=== PATIENT | female | born 1950 | race Caucasian/White ===

== ENCOUNTER → 2021-09-15 | Outpatient (CLI) | payer MEDICARE, OTHER ==
--- NOTE | 2021-09-15 15:22 | RAD ---
MR#: [id number] Date of Study: 09/15/2021 Ordering Physician: NED STRONG, Referring Physician: NED STRONG, Tech: Hossein Oseguera MBA, RDMS, RVT, RDCS, RTR APPROVED REPORT Patient Location : OUT-PATIENT Indications VENOUS INSUFFICIENCY Lesser Saphenous Veins (LSV) Significant venous reflux is noted in the Bilateral LSV. Findings Grayscale images of superficial veins and saphenofemoral junctions bilateral lower extremities were g rossly unremarkable. Spectral waveform and color duplex analysis showed previously ablated bilateral greater saphenous veins. The lesser saphenous veins both lower extremities showed significant venou s reflux. The right lesser saphenous vein measured 3.5 mm at the saphenous popliteal junction and showed a sign ificant reflux of 2.5 seconds. This vein showed reflux all the way up to the ankle. The left lesser saphenous vein measured 2.8 mm at the saphenous popliteal junction and showed significant reflux of 2 seconds. This vein also showed significant reflux all the way up to the ankle. Critical Notification Critical Value: No <Conclusion> Bilateral lower extremity venous reflux study showed previously ablated bilateral greater saphenous v eins and significant venous reflux involving bilateral lesser saphenous veins. Signed by : Edson Moreno, Electronically Approved : 09/15/2021 15:21:39
--- NOTE | 2021-09-15 17:26 | CARD ---
MR#: [id number] Date of Study: 09/15/2021 Ordering Physician: NDE STRONG, Referring Physician: NED STRONG, Tech: Daniel Sweeney [facility] APPROVED REPORT EXAM: Two-dimensional and M-mode echocardiogram with Doppler and color Doppler. Other Information Quality : AverageHR: 71bpm Rhythm : NSR INDICATION Pre-Op RISK FACTORS Hypertension Obesity 2D DIMENSIONS Left Atrium(2D)3.9 (1.6-4.0cm)IVSd0.8 (0.7-1.1cm) Aortic Root(2D)3.1 (2.0-3.7cm)LVDd4.5 (3.9-5.9cm) LVOT Diameter1.9 (1.8-2.4cm)PWd0.8 (0.7-1.1cm) LA Btferq59 (18-58mL)LVDs2.5 (2.5-4.0cm) FS (%) 43.9 %SV68.8 ml Aortic Valve AoV Peak Colton.148.2cm/sAoV VTI32.9cm AO Peak GR.8.8mmHgLVOT Peak Colton.103.4cm/s AO Mean GR.5mmHgAVA (VMAX)2.05cm2 Mitral Valve MV E Nittbwvk380.2cm/sMV DECEL JYFF744av MV A Fgvctfnc944.9cm/sE/A Ratio0.9 Pulmonary Valve PV Peak Yrmazfib297.8cm/s Tricuspid Valve TR P. Ojrstmfb958od/sTR Peak Gr.38mmHg Pulmonary Vein S1 Mdvvcopp85.4cm/sD2 Nqiwtryg69.7cm/s LEFT VENTRICLE The left ventricle is normal size. There is normal left ventricular wall thickness. The left ventricu lar systolic function is normal. LV ejection fraction is 55 to 60%. There is normal LV segmental wall motion. Transmitral Doppler flow pattern is Grade I-abnormal relaxation pattern. No left ventricle t hrombus noted on this study. There is no ventricular septal defect visualized. There is no left ventr icular aneurysm. There is no mass noted in the left ventricle. RIGHT VENTRICLE The right ventricle is normal size. There is normal right ventricular wall thickness. The right ventr icular systolic function is normal. ATRIA The left atrium size is normal. The right atrium size is normal. The interatrial septum is intact wit h no evidence for an atrial septal defect or patent foramen ovale as noted on 2-D or Doppler imaging. AORTIC VALVE The aortic valve is not well seen but appears normal. Doppler and Color Flow revealed no significant aortic regurgitation. There is no significant aortic valvular stenosis. There is no aortic valvular v egetation. MITRAL VALVE The mitral valve is thickened but opens well. There is no evidence of mitral valve prolapse. There is no mitral valve stenosis. Doppler and Color-flow revealed trace to mild mitral regurgitation. TRICUSPID VALVE The tricuspid valve is normal in structure and function. Doppler and Color Flow revealed trace tricus pid regurgitation. The PA pressure was estimated at 38 mmHg. There is no tricuspid valve prolapse or vegetation. There is no tricuspid valve stenosis. PULMONIC VALVE The pulmonary valve is normal in structure and function. Doppler and Color Flow revealed no pulmonic valvular regurgitation. There is no pulmonic valvular stenosis. GREAT VESSELS The aortic root is normal in size. The pulmonary artery is normal. The IVC is normal in size and donavon apses >50% with inspiration. PERICARDIAL EFFUSION There is no pleural effusion. There is no evidence of significant pericardial effusion. Critical Notification Critical Value: No <Conclusion> The left ventricle is normal size. The left ventricular systolic function is normal. LV ejection fraction is 55 to 60%. Doppler and Color Flow revealed no significant aortic regurgitation. There is no significant aortic valvular stenosis. Doppler and Color-flow revealed trace to mild mitral regurgitation. Doppler and Color Flow revealed trace tricuspid regurgitation. The PA pressure was estimated at 38 mmHg. Signed by : Francisco Ruiz MD Electronically Approved : 09/15/2021 17:26:14
== END ==
LOC: US 08:56
PROVIDERS: ATTEND Internal Medicine Cardiovascular Disease
DX: Z01.810 Encounter for preprocedural cardiovascular examination (principal); I87.2 Venous insufficiency (chronic) (peripheral); I34.0 Nonrheumatic mitral (valve) insufficiency
CPT/HCPCS: 93306; 93970; C8929